=== PATIENT | female | born 1945 | race Caucasian/White ===

== ENCOUNTER 2017-12-14 10:42 | Emergency (ER) | payer MEDICARE, MEDICAID ==
[~2017-12-14] VITALS: Ht 154.9 cm; Wt 52.0 kg
[~2017-12-14 10:42] MED LIST: AMA100C PO; CARB1TAB23 PO; CEPH500C5 PO; CHOL10002 PO; CLON-528 PO; CYAN-19 PO; DOCU250C4 PO; ESCI10TA PO; FLO0.1T PO; HUM7525 SQ; HYDR-569 PO; LANTUS SQ; LORA-660 PO; MELO7.5T12 PO; MULT-1179 PO; POLY119P2 PO; ROPI2TAB4 PO; ZINC57OI3; ZOLP5TAB2 PO
[2017-12-14] MEDS ORDERED: normal saline 1000ML IV soln IVB ONE (13:45)
[2017-12-14 14:12] LABS: BASOPHILS % (AUTO) 0.1 % (0-1); EOSINOPHILS % (AUTO) 0 % (0-6); HEMATOCRIT 37.5 % (35.0-45.0); HEMOGLOBIN 12.7 g/dl (12.0-16.0); LYMPHOCYTES # (AUTO) 1.3 X10'3 (1.1-4.8); LYMPHOCYTES % (AUTO) 8.5 % (21-51); MEAN CORPUSCULAR HEMOGLOBIN 31.5 PG (27.0-31.0); MEAN CORPUSCULAR HGB CONC 33.9 % (33.0-36.5); MEAN CORPUSCULAR VOLUME 92.9 FL (78-98); MEAN PLATELET VOLUME 8.4 FL (7.4-10.4); MONOCYTES # (AUTO) 0.9 X10'3 (0-0.9); NEUTROPHILS # (AUTO) 13.5 X10'3 (1.8-7.7); NEUTROPHILS % (AUTO) 85.4 % (42-75); PLATELET COUNT 167 X10'3 (140-440); RED BLOOD COUNT 4.04 X10'6 (4.20-5.60); RED CELL DISTRIBUTION WIDTH 13.4 % (11.5-14.5); WHITE BLOOD COUNT 15.8 X10'3 (4.5-11.0)
[2017-12-14 14:21] LABS: INR 1.1 INR; PARTIAL THROMBOPLASTIN TIME 28 SECONDS (22-32); PROTHROMBIN TIME 11.2 SECONDS (9.0-12.0)
[2017-12-14 14:25] LABS: ANION GAP 7 (8-16); BILIRUBIN,TOTAL 0.7 MG/DL (0.1-1.0); BLOOD UREA NITROGEN 51 MG/DL (7-18); BUN/CREATININE RATIO 47.2 (6.6-38.0); CALCIUM 8.7 MG/DL (8.5-10.1); CHLORIDE 102 MMOL/L (99-107); CREATININE 1.08 MG/DL (0.40-0.90); GLUCOSE 297 MG/DL (70-104); POTASSIUM 3.9 MMOL/L (3.5-5.1); SODIUM 141 MMOL/L (135-145); TOTAL CARBON DIOXIDE 32.4 MMOL/L (24-32); eGFR 50 ML/MIN
[2017-12-14 14:26] LABS: ALANINE AMINOTRANSFERASE 10 U/L (12-78); ALBUMIN 3.2 G/DL (3.4-5.0); ALBUMIN/GLOBULIN RATIO 0.7 (1.1-1.5); ALKALINE PHOSPHATASE 113 IU/L (46-116); ASPARTATE AMINO TRANSFERASE 15 U/L (10-37); TOTAL PROTEIN 7.9 G/DL (6.4-8.2)
[2017-12-14 15:37] LABS: CLARITY,URINE CLOUDY (Clear); GLUCOSE, URINE >=1000 mg/dl (Neg); KETONES,URINE NEGATIVE (Neg); LEUKOCYTE ESTERASE ,URINE LARGE (Neg); NITRITES, URINE NEGATIVE (Neg); OCCULT BLOOD,URINE SMALL (Neg); PROTEIN,URINE TRACE mg/dl (Neg); UROBILINOGEN,URINE 0.2 E.U/dL (0.2-1.0)
[2017-12-14 15:44] LABS: COLOR,URINE COLORLESS (Yellow); UA COLLECTION TYPE CLN CATCH MIDSTREAM
[2017-12-14 15:50] LABS: HYALINE CASTS 0-3 /LPF (NEGATIVE); SQUAMOUS EPITHELIAL CELL,UR FEW /LPF (FEW)
[2017-12-14 15:52] LABS: BACTERIA,URINE 2+ /HPF (Neg); RBC,URINE NONE SEEN /HPF (0-2); WBC CLUMPS,URINE MANY /HPF (NEGATIVE); WBC,URINE TNTC /HPF (0-4)
[2017-12-14] MEDS ORDERED: CefTRIAXone inj 1,000 MG in normal saline 50ml IV soln 50 ML IV ONE (16:00)
[2017-12-14] MEDS ORDERED: CefTRIAXone/D5W-Rocephin 1gm 50 ML IV ONE (16:01)
[2017-12-14] MEDS ORDERED: ringers solution, lacted 1,000 ML IV ONE ×2 (16:40)
[2017-12-14 20:08] LABS: ALBUMIN 2.6 G/DL (3.4-5.0); ANION GAP 9 (8-16); BLOOD UREA NITROGEN 30 MG/DL (7-18); BUN/CREATININE RATIO 44.8 (6.6-38.0); CALCIUM 7.9 MG/DL (8.5-10.1); CHLORIDE 105 MMOL/L (99-107); CREATININE 0.67 MG/DL (0.40-0.90); GLUCOSE 148 MG/DL (70-104); POTASSIUM 3.4 MMOL/L (3.5-5.1); SODIUM 143 MMOL/L (135-145); TOTAL CARBON DIOXIDE 29.4 MMOL/L (24-32); eGFR 86 ML/MIN
[2017-12-14] MEDS ORDERED: CIPR-230 PO (21:33)
[2017-12-14 22:00] VITALS: BP 161/74
== END 2017-12-14 22:02 | disposition home or self-care (01) ==
LOC: ER 10:43
DX: E11.65 Type 2 diabetes mellitus with hyperglycemia (principal); N39.0 Urinary tract infection, site not specified; E86.0 Dehydration; Z98.890 Other specified postprocedural states; Z88.2 Allergy status to sulfonamides; Z88.8 Allergy status to other drugs, medicaments and biological substances; Z79.4 Long term (current) use of insulin; Z79.899 Other long term (current) drug therapy
CPT/HCPCS: 36415; 71045; 80048; 80053; 81001; 82948; 83605; 83735; 84145; 85025; 85610; 85730; 87040; 87077; 87088; 87186; 93005; 96361; 96365; 99285; J0696; J7030; J7120; J7040

== ENCOUNTER 2018-08-26 13:09 | Emergency (ER) | payer MEDICARE, MEDICAID ==
[~2018-08-26] VITALS: Ht 154.9 cm; Wt 53.2 kg
[~2018-08-26 13:09] MED LIST changes: +HYDR-4383 PO; -HYDR-569 PO
[2018-08-26 13:48] VITALS: BP 93/68
[2018-08-26] MEDS ORDERED: CefTRIAXone 2gm/D5W 50ml 50 ML IV ONE (15:10)
[2018-08-26] MEDS ORDERED: normal saline 1000ML IV soln IV ONE (15:10)
[2018-08-26 15:23] LABS: BASOPHILS % (AUTO) 0.3 % (0-1); EOSINOPHILS # (AUTO) 0.1 X10'3 (0-0.9); EOSINOPHILS % (AUTO) 1.6 % (0-6); HEMATOCRIT 37.7 % (35.0-45.0); HEMOGLOBIN 12.4 g/dl (12.0-16.0); LYMPHOCYTES # (AUTO) 1.6 X10'3 (1.1-4.8); LYMPHOCYTES % (AUTO) 18.8 % (21-51); MEAN CORPUSCULAR HEMOGLOBIN 30.4 PG (27.0-31.0); MEAN CORPUSCULAR HGB CONC 32.8 % (33.0-36.5); MEAN CORPUSCULAR VOLUME 92.7 FL (78-98); MEAN PLATELET VOLUME 8.9 FL (7.4-10.4); MONOCYTES # (AUTO) 0.6 X10'3 (0-0.9); MONOCYTES % (AUTO) 7.4 % (2-12); NEUTROPHILS % (AUTO) 71.9 % (42-75); PLATELET COUNT 163 X10'3 (140-440); RED BLOOD COUNT 4.07 X10'6 (4.20-5.60); RED CELL DISTRIBUTION WIDTH 14.3 % (11.5-14.5); WHITE BLOOD COUNT 8.3 X10'3 (4.5-11.0)
[2018-08-26 15:40] LABS: ALANINE AMINOTRANSFERASE 11 U/L (12-78); ALBUMIN 3.5 G/DL (3.4-5.0); ALBUMIN/GLOBULIN RATIO 0.9 (1.1-1.5); ALKALINE PHOSPHATASE 110 IU/L (46-116); ANION GAP 8 (8-16); ASPARTATE AMINO TRANSFERASE 27 U/L (10-37); BILIRUBIN,TOTAL 0.5 MG/DL (0.1-1.0); BLOOD UREA NITROGEN 32 MG/DL (7-18); BUN/CREATININE RATIO 40.5 (6.6-38.0); CALCIUM 9.2 MG/DL (8.5-10.1); CHLORIDE 99 MMOL/L (99-107); CREATININE 0.79 MG/DL (0.40-0.90); GLUCOSE 98 MG/DL (70-104); POTASSIUM 4.1 MMOL/L (3.5-5.1); SODIUM 139 MMOL/L (135-145); TOTAL CARBON DIOXIDE 32.4 MMOL/L (24-32); TOTAL PROTEIN 7.6 G/DL (6.4-8.2); eGFR 71 ML/MIN
[2018-08-26] MEDS ORDERED: CEPH-572 PO (16:11)
[2018-08-26] MEDS ORDERED: MYCOL30CR TP (16:11)
== END 2018-08-26 16:45 | disposition home or self-care (01) ==
LOC: ER 13:09
DX: N39.0 Urinary tract infection, site not specified (principal); R41.82 Altered mental status, unspecified; R21 Rash and other nonspecific skin eruption; E11.9 Type 2 diabetes mellitus without complications; G89.29 Other chronic pain; Z98.890 Other specified postprocedural states; Z88.2 Allergy status to sulfonamides; Z88.8 Allergy status to other drugs, medicaments and biological substances; Z79.899 Other long term (current) drug therapy; Z79.4 Long term (current) use of insulin
CPT/HCPCS: 36415; 80053; 82948; 85025; 96365; 99283; J0696; J7030

== ENCOUNTER 2018-10-24 19:21 | Inpatient (IN) | payer MEDICARE, MEDICAID | END 2018-10-27 17:15 | disposition home or self-care (01) | LOC: ED HOLD 10-25 01:40 → ER 19:21 → ICU 2S 10-25 05:30 → PCU 3S 10-25 12:30 | DX: N39.0 Urinary tract infection, site not specified (principal); G21.0 Malignant neuroleptic syndrome; E11.51 Type 2 diabetes mellitus with diabetic peripheral angiopathy without gangrene; F03.90 Unspecified dementia, unspecified severity, without behavioral disturbance, psychotic disturbance, mood disturbance, and anxiety ==

== ENCOUNTER 2019-06-21 11:49 | Inpatient (IN) | payer MEDICARE, MEDICAID ==
[~2019-06-21] VITALS: Ht 154.9 cm; Wt 44.5 kg
[~2019-06-21 11:49] MED LIST changes: +ATOR20TA PO; -CARB1TAB23 PO; +CARB1TAB42 PO; -CEPH500C5 PO; -CYAN-19 PO; +CYAN-51 PO; -HYDR-4383 PO; +LEVO500T89 PO; +METF500T20 PO; -MULT-1179 PO; +PIOG45TA65 PO; -ROPI2TAB4 PO; +UBID1CAP54 PO; -ZINC57OI3; +ZINC57OI3 TOP; -ZOLP5TAB2 PO
--- NOTE | 2019-06-21 12:33 | NUR ---
Note esme in EDM - 06/21/19 at 1234 by SONJA Pt had small smear of orangish brown bowel movement. Pt reports significant pain when being wiped with moist towellette. Pt reports she is not ready to return to the [facility] so the IV site can be started in preparation for the CT scan of the abd. Pt's daughter is at the bedside.
[2019-06-21 13:28] LABS: CLARITY,URINE CLOUDY (Clear); COLOR,URINE YELLOW (Yellow); GLUCOSE, URINE NEGATIVE (Neg); KETONES,URINE TRACE mg/dl (Neg); LEUKOCYTE ESTERASE ,URINE TRACE (Neg); NITRITES, URINE NEGATIVE (Neg); OCCULT BLOOD,URINE SMALL (Neg); PH,URINE 5.5 (4.8-8.0); PROTEIN,URINE 100 mg/dl (Neg); UROBILINOGEN,URINE 0.2 E.U/dL (0.2-1.0)
[2019-06-21 13:32] LABS: UA COLLECTION TYPE STRAIGHT CATH
[2019-06-21 13:50] LABS: MUCUS STRANDS FEW /LPF (Neg); SQUAMOUS EPITHELIAL CELL,UR FEW /LPF (FEW)
[2019-06-21] MEDS ORDERED: normal saline 1000ML IV soln IVB ONE (13:50)
[2019-06-21 13:51] LABS: BACTERIA,URINE 3+ /HPF (Neg)
--- NOTE | 2019-06-21 14:16 | NUR ---
PT TO CT
[2019-06-21 14:18] LABS: BASOPHILS % (AUTO) 0.4 % (0-1); EOSINOPHILS % (AUTO) 0.1 % (0-6); HEMATOCRIT 38.7 % (35.0-45.0); LYMPHOCYTES # (AUTO) 1.8 X10'3 (1.1-4.8); LYMPHOCYTES % (AUTO) 14.8 % (21-51); MEAN CORPUSCULAR HEMOGLOBIN 31.4 PG (27.0-31.0); MEAN CORPUSCULAR HGB CONC 33.5 g/dL (33.0-36.5); MEAN CORPUSCULAR VOLUME 93.7 FL (78-98); MEAN PLATELET VOLUME 9.1 FL (7.4-10.4); MONOCYTES # (AUTO) 0.5 X10'3 (0-0.9); MONOCYTES % (AUTO) 4.4 % (2-12); NEUTROPHILS # (AUTO) 9.7 X10'3 (1.8-7.7); NEUTROPHILS % (AUTO) 80.3 % (42-75); PLATELET COUNT 166 X10'3 (140-440); RED BLOOD COUNT 4.13 X10'6 (4.20-5.60); RED CELL DISTRIBUTION WIDTH 13.9 % (11.5-14.5); WHITE BLOOD COUNT 12.1 X10'3 (4.5-11.0)
[2019-06-21 14:27] LABS: PARTIAL THROMBOPLASTIN TIME 29 SECONDS (22-32)
[2019-06-21 14:29] LABS: ALANINE AMINOTRANSFERASE 29 U/L (12-78); ALBUMIN/GLOBULIN RATIO 0.7 (1.1-1.5); ALKALINE PHOSPHATASE 108 IU/L (46-116); ANION GAP 9 (8-16); ASPARTATE AMINO TRANSFERASE 69 U/L (10-37); BILIRUBIN,TOTAL 0.6 MG/DL (0.1-1.0); BLOOD UREA NITROGEN 37 MG/DL (7-18); BUN/CREATININE RATIO 28.7 (6.6-38.0); CALCIUM 8.5 MG/DL (8.5-10.1); CHLORIDE 104 MMOL/L (99-107); CREATININE 1.29 MG/DL (0.40-0.90); GLUCOSE 81 MG/DL (70-104); MAGNESIUM 1.2 MG/DL (1.5-2.4); POTASSIUM 3.1 MMOL/L (3.5-5.1); SODIUM 144 MMOL/L (135-145); TOTAL CARBON DIOXIDE 31.5 MMOL/L (24-32); TOTAL PROTEIN 7.1 G/DL (6.4-8.2); eGFR 40 ML/MIN
[2019-06-21] MEDS ORDERED: potassium 10mEq/100ml NS w/LIDOcaine (10mg/bag) IV ONE (14:55)
[2019-06-21] MEDS ORDERED: CefTRIAXone/D5W-Rocephin 1gm 50 ML IV ONE (14:55)
[2019-06-21] MEDS ORDERED: potassium Cl 10 mEq/100mL bag IV ONE (15:05)
[2019-06-21] MEDS ORDERED: OMEP-50 PO (15:34)
[2019-06-21] MEDS ORDERED: METF-438 PO (15:34)
[2019-06-21] MEDS ORDERED: AMA100C PO (15:34)
[2019-06-21] MEDS ORDERED: diphenhydrAMINE 25mg capsule PO PRN (16:20)
[2019-06-21] MEDS ORDERED: magnesium 4gm in 100ml NS 100 ML IV PRN (16:20)
[2019-06-21] MEDS ORDERED: magnesium 2GM in 50ml NS 50 ML IV PRN (16:20)
[2019-06-21] MEDS ORDERED: HYDROcodone/acetaminophen 10/325mg tab PO PRN (16:20)
[2019-06-21] MEDS ORDERED: bisacodyl 10mg suppository rectal RC PRN (16:20)
[2019-06-21] MEDS ORDERED: magnesium hydroxide 30ml (MOM) UD suspension PO PRN (16:20)
[2019-06-21] MEDS ORDERED: HYDROcodone/acetaminophen 5mg/325mg tablet PO PRN (16:20)
[2019-06-21] MEDS ORDERED: potassium CL 10mEq/100ml bag 100 ML IV PRN (16:20)
[2019-06-21] MEDS ORDERED: potassium Cl 20 mEq SR tablet PO PRN ×2 (16:20)
[2019-06-21] MEDS ORDERED: magnesium Cl slow-release 64mg tablet PO PRN (16:20)
[2019-06-21] MEDS ORDERED: mag hydrox/Alum hydrox/simeth 30ml oral suspension PO PRN (16:20)
[2019-06-21] MEDS ORDERED: diphenhydrAMINE 50 mg/ml inj IV PRN (16:20)
[2019-06-21] MEDS ORDERED: ondansetron/PF 4mg/2ml inj IV PRN (16:20)
[2019-06-21] MEDS ORDERED: acetaminophen 325mg tablet PO PRN ×2 (16:20)
[2019-06-21] MEDS ORDERED: metoclopramide 5 mg/ml inj IV PRN (16:20)
[2019-06-21] MEDS ORDERED: dextrose ORAL solution 15 GM/59 ML bottle PO PRN ×2 (16:40)
[2019-06-21] MEDS ORDERED: dextrose 50%-water 50ml dispensing syringe IV PRN (16:40)
[2019-06-21] MEDS ORDERED: glucagon, human recombinant 1mg kit SUBCUT PRN (16:40)
[2019-06-21] MEDS ORDERED: insulin Lispro (HumaLOG) vial - multi-dose SQ SCH (16:40)
[2019-06-21] MEDS ORDERED: MESSAGE TO PHARMACY PO ONE (16:40)
[2019-06-21] MEDS ORDERED: ACET-75 PO (16:44)
[2019-06-21] MEDS ORDERED: CETI10CA PO (16:44)
[2019-06-21] MEDS ORDERED: NUTR113P PO (16:47)
[2019-06-21 17:00] LABS: HEMOGLOBIN A1C 6.4 % (4.5-6.2)
[2019-06-21] MEDS ORDERED: INSULIN ASPART 2 UNIT SQ SCH (18:00)
--- NOTE | 2019-06-21 18:13 | NUR ---
TONI, CAREGIVER AT BEDSIDE WITH PT. CAREGIVER WILL STAY WITH PT UNTIL SHE GOES TO A ROOM.
[2019-06-21] MEDS: normal saline 1000ml 1,000 ML IV SCH (18:25)
[2019-06-21] MEDS: dextrose 50%-water 50ml dispensing syringe IV PRN (18:42)
--- NOTE | 2019-06-21 18:45 | NUR ---
PT HAD A BLOOD SUGAR OF 47. ADMINISTERED 50ML OF DEXTROSE ORDERED. WILL RECHECK BLOOD SUGAR IN 15 MINUTES.
--- NOTE | 2019-06-21 18:55 | NUR ---
BLOOD SUGAR RECHECK 214
--- NOTE | 2019-06-21 19:09 | NUR ---
CALLED TO MEDICAL FLOOR TO GIVE REPORT. RN NOT AVAILABLE AT THIS TIME
--- NOTE | 2019-06-21 19:50 | NUR ---
Received report from Mary Alice TABARES in the ER. Pt arrived on the unit via gurney with caregiver at bedside. Transferred pt using slide board. Pt has no signs of distress, will continue to monitor.
[2019-06-21 20:00] VITALS: BP 152/38
[2019-06-21] MEDS ORDERED: amantadine 100mg/10ml UD oral solution PO SCH (20:00)
[2019-06-21] MEDS ORDERED: temazepam 15mg capsule PO PRN (21:00)
[2019-06-21] MEDS: insulin glargine (Lantus) pen - multi-dose SQ SCH (21:00)
[2019-06-21] MEDS: carbidopa/levodopa 50/200mg CR tablet PO SCH (22:54)
[2019-06-21] MEDS: acetaminophen 325mg tablet PO SCH (22:54)
[2019-06-21] MEDS: heparin, porcine 5000 units/ml vial SQ SCH (22:55)
[2019-06-21 23:47] VITALS: BP 151/85
[2019-06-22] MEDS: normal saline 1000ml 1,000 ML IV SCH (03:49)
[2019-06-22 04:50] LABS: BASOPHILS % (AUTO) 0.4 % (0-1); EOSINOPHILS % (AUTO) 0.5 % (0-6); HEMATOCRIT 36.1 % (35.0-45.0); HEMOGLOBIN 12.1 g/dl (12.0-16.0); LYMPHOCYTES # (AUTO) 1.4 X10'3 (1.1-4.8); LYMPHOCYTES % (AUTO) 17.7 % (21-51); MEAN CORPUSCULAR HEMOGLOBIN 31.8 PG (27.0-31.0); MEAN CORPUSCULAR HGB CONC 33.6 g/dL (33.0-36.5); MEAN CORPUSCULAR VOLUME 94.6 FL (78-98); MEAN PLATELET VOLUME 8.9 FL (7.4-10.4); MONOCYTES # (AUTO) 0.5 X10'3 (0-0.9); MONOCYTES % (AUTO) 6.3 % (2-12); NEUTROPHILS # (AUTO) 5.9 X10'3 (1.8-7.7); NEUTROPHILS % (AUTO) 75.1 % (42-75); PLATELET COUNT 144 X10'3 (140-440); RED BLOOD COUNT 3.81 X10'6 (4.20-5.60); RED CELL DISTRIBUTION WIDTH 14.2 % (11.5-14.5); WHITE BLOOD COUNT 7.9 X10'3 (4.5-11.0)
[2019-06-22 05:06] LABS: ALANINE AMINOTRANSFERASE 27 U/L (12-78); ALBUMIN 2.8 G/DL (3.4-5.0); ALBUMIN/GLOBULIN RATIO 0.7 (1.1-1.5); ALKALINE PHOSPHATASE 92 IU/L (46-116); ANION GAP 5 (8-16); ASPARTATE AMINO TRANSFERASE 37 U/L (10-37); BILIRUBIN,TOTAL 0.4 MG/DL (0.1-1.0); BLOOD UREA NITROGEN 27 MG/DL (7-18); BUN/CREATININE RATIO 28.4 (6.6-38.0); CALCIUM 7.9 MG/DL (8.5-10.1); CHLORIDE 108 MMOL/L (99-107); CREATININE 0.95 MG/DL (0.40-0.90); GLUCOSE 70 MG/DL (70-104); MAGNESIUM 1.2 MG/DL (1.5-2.4); PHOSPHORUS 2.8 MG/DL (2.3-4.5); SODIUM 147 MMOL/L (135-145); TOTAL CARBON DIOXIDE 34.4 MMOL/L (24-32); TOTAL PROTEIN 6.6 G/DL (6.4-8.2); eGFR 57 ML/MIN
[2019-06-22 05:08] LABS: POTASSIUM 2.9 MMOL/L (3.5-5.1)
[2019-06-22] MEDS: potassium CL 10mEq/100ml bag 100 ML IV PRN (05:31)
--- NOTE | 2019-06-22 06:35 | NUR ---
Patient in room [facility]. I have received report from RAYSHAWN Arroyo and had the opportunity to ask questions and assume patient care.
--- NOTE | 2019-06-22 06:35 | NUR ---
Problems reprioritized. Patient report given, questions answered & plan of care reviewed with Sally RN .
[2019-06-22] MEDS: dextrose 50%-water 50ml dispensing syringe IV PRN (06:48)
[2019-06-22 07:33] VITALS: BP 147/45
[2019-06-22] MEDS: CefTRIAXone/D5W-Rocephin 1gm 50 ML IV SCH (07:33)
[2019-06-22] MEDS ORDERED: insulin glargine (Lantus) pen - multi-dose SQ SCH (08:00)
[2019-06-22] MEDS: K and/or MAG REPLACEMENT MC SCH (08:00)
[2019-06-22] MEDS: acetaminophen 325mg tablet PO SCH (08:00)
[2019-06-22] MEDS ORDERED: Potassium Cl inj 20 MEQ in normal saline 1000ml 990 ML IV SCH (09:20)
[2019-06-22] MEDS: fludrocortisone acetate 0.1mg tablet PO SCH (09:36)
[2019-06-22] MEDS: cetirizine 10mg tablet PO SCH (09:36)
[2019-06-22] MEDS: Potassium Cl 40 MEQ in NS 500 ML IV SCH ×2 (09:36→14:57)
[2019-06-22] MEDS: amantadine 100 MG capsule PO SCH (09:37)
[2019-06-22] MEDS: pantoprazole 40mg Tablet.DR PO SCH (09:37)
[2019-06-22] MEDS: ESCITALOPRAM OXALATE 5 MG TABLET PO SCH (09:40)
[2019-06-22] MEDS: heparin, porcine 5000 units/ml vial SQ SCH ×2 (09:41→21:01)
[2019-06-22] MEDS: carbidopa/levodopa 50/200mg CR tablet PO SCH ×3 (09:59→21:00)
--- NOTE | 2019-06-22 10:15 | NUR ---
Pt with low [place] of 12. Skin intact and no edema per physical assessment. Noted that patient's wt on the low end of appropriate however current documented wt is pt stated despite pt documented as A/O x 1 and nonverbal with hx dementia. Pt admit earlier this year with RD assessment 10/25/18 noted to have no visible fat or muscle wasting and appeared wt appropriate with documented wt hx range of 43-52kg all pt stated and documented ht hx range of 56-64 in between prior admits. No concerns for malnutrition at this time. Will continue to follow. Addendum: 06/22/19 at [address] Amended: Links added.
[2019-06-22 12:00] VITALS: BP 123/87
[2019-06-22 19:12] VITALS: BP 143/72
--- NOTE | 2019-06-22 19:15 | NUR ---
Patient in room [facility]. I have received report from Sally TABARES and had the opportunity to ask questions and assume patient care.
[2019-06-22] MEDS: insulin glargine (Lantus) pen - multi-dose SQ SCH (21:00)
[2019-06-22] MEDS: dextrose 5%-1/4 normal saline 1,000 ML IV SCH (21:01)
[2019-06-22] MEDS: lactobacillus rhamnosus 10,000 MMU CELLS/CAPSULE PO SCH (21:01)
[2019-06-23] VITALS: BP 140/70
[2019-06-23 04:41] LABS: ANION GAP 3 (8-16); BLOOD UREA NITROGEN 14 MG/DL (7-18); BUN/CREATININE RATIO 18.4 (6.6-38.0); CALCIUM 7.7 MG/DL (8.5-10.1); CHLORIDE 104 MMOL/L (99-107); CREATININE 0.76 MG/DL (0.40-0.90); GLUCOSE 209 MG/DL (70-104); POTASSIUM 3.1 MMOL/L (3.5-5.1); SODIUM 140 MMOL/L (135-145); TOTAL CARBON DIOXIDE 32.6 MMOL/L (24-32); eGFR 74 ML/MIN
[2019-06-23 04:42] LABS: ALANINE AMINOTRANSFERASE 23 U/L (12-78); ALKALINE PHOSPHATASE 88 IU/L (46-116); ASPARTATE AMINO TRANSFERASE 21 U/L (10-37); BILIRUBIN,TOTAL 0.4 MG/DL (0.1-1.0); PHOSPHORUS 1.9 MG/DL (2.3-4.5); TOTAL PROTEIN 6.7 G/DL (6.4-8.2)
[2019-06-23 04:43] LABS: BASOPHILS % (AUTO) 0.3 % (0-1); EOSINOPHILS # (AUTO) 0.1 X10'3 (0-0.9); EOSINOPHILS % (AUTO) 1.2 % (0-6); HEMATOCRIT 35.4 % (35.0-45.0); LYMPHOCYTES # (AUTO) 1.4 X10'3 (1.1-4.8); LYMPHOCYTES % (AUTO) 25.9 % (21-51); MEAN CORPUSCULAR HEMOGLOBIN 31.6 PG (27.0-31.0); MEAN CORPUSCULAR HGB CONC 33.9 g/dL (33.0-36.5); MEAN CORPUSCULAR VOLUME 93.2 FL (78-98); MEAN PLATELET VOLUME 9.1 FL (7.4-10.4); MONOCYTES # (AUTO) 0.3 X10'3 (0-0.9); NEUTROPHILS # (AUTO) 3.5 X10'3 (1.8-7.7); NEUTROPHILS % (AUTO) 66.6 % (42-75); PLATELET COUNT 148 X10'3 (140-440); WHITE BLOOD COUNT 5.2 X10'3 (4.5-11.0)
[2019-06-23 04:48] LABS: ALBUMIN 2.8 G/DL (3.4-5.0); ALBUMIN/GLOBULIN RATIO 0.7 (1.1-1.5); MAGNESIUM 1.8 MG/DL (1.5-2.4)
--- NOTE | 2019-06-23 06:12 | NUR ---
Problems reprioritized. Patient report given, questions answered & plan of care reviewed with Codie TABARES.
[2019-06-23] MEDS: dextrose 5%-1/4 normal saline 1,000 ML IV SCH (06:45)
[2019-06-23] MEDS: CefTRIAXone/D5W-Rocephin 1gm 50 ML IV SCH (07:02)
[2019-06-23] MEDS: pantoprazole 40mg Tablet.DR PO SCH (07:51)
[2019-06-23] MEDS: K and/or MAG REPLACEMENT MC SCH (07:51)
[2019-06-23] MEDS: fludrocortisone acetate 0.1mg tablet PO SCH (07:52)
[2019-06-23] MEDS: lactobacillus rhamnosus 10,000 MMU CELLS/CAPSULE PO SCH (07:52)
[2019-06-23] MEDS: ESCITALOPRAM OXALATE 5 MG TABLET PO SCH (07:54)
[2019-06-23] MEDS: cetirizine 10mg tablet PO SCH (07:54)
[2019-06-23 08:00] VITALS: BP 148/71
[2019-06-23] MEDS ORDERED: non-formulary drug (Polyethylene Glycol 3350 (Miralax) 17 GM) PO SCH (08:00)
[2019-06-23] MEDS: amantadine 100 MG capsule PO SCH (08:05)
[2019-06-23] MEDS: carbidopa/levodopa 50/200mg CR tablet PO SCH ×2 (08:06→13:28)
[2019-06-23] MEDS: heparin, porcine 5000 units/ml vial SQ SCH (08:08)
[2019-06-23] MEDS: potassium CL 10mEq/100ml bag 100 ML IV PRN ×4 (08:11→13:28)
[2019-06-23] MEDS ORDERED: polyethylene glycol 3350 17gm powd pack PO SCH (08:14)
[2019-06-23] MEDS ORDERED: OMEP-50 PO (10:52)
[2019-06-23] MEDS ORDERED: POTA20TA10 PO (10:53)
[2019-06-23 11:00] VITALS: BP 163/64
--- NOTE | 2019-06-23 12:36 | NUR ---
Patient in room [facility]. I have received report from Codie and had the opportunity to ask questions and assume patient care.
--- NOTE | 2019-06-23 14:20 | NUR ---
Did not start patient on diabetic protocol for lunch. Pt will be going home and when not on dextrose is at risk for blood sugars dropping if insulin is given.
--- NOTE | 2019-06-23 14:47 | NUR ---
Patient refused to look up when asked and turned her head away when I lowered my head in an attempt to assess pupils. Addendum: 06/23/19 at 1459 by Tomeka ALBERT Amended: Links added.
[2019-06-23] MEDS ORDERED: CIPR-230 PO (16:01)
--- NOTE | 2019-06-23 17:02 | NUR ---
Student documentation: I have reviewed all interventions, assessments performed and documented by Tomeka THOMAS .
--- NOTE | 2019-06-23 17:39 | NUR ---
Problems reprioritized. Patient report given, questions answered & plan of care reviewed with
--- NOTE | 2019-06-23 17:45 | NUR ---
PT DISCHARGED BACK TO CARE FACILITY WITH TONI, BRIQUETTE MAKER/CARPET JACK. IV X2 TAKEN OUT, NO TELE. PT WAS NOT COVERED FOR BLOOD SUGAR DUE TO ISSUES WITH HER DROPPING AND WHEN GIVEN DEXTROSE SHE GOES INTO 200'S FOR SHORT TIME. JULIO CÉSAR OTHER [employer] PAYROLL CONSULTANT AWARE THAT BLOOD SUGARS ARE HIGH FOR NOW AND SHE SAYS IT WAS OKAY TO NOT GIVE INSULIN FOR NOW SINCE SHE IS LEAVING AND SHE WILL CHECK HER BACK AT FACILITY AND CORRECT IT THEN. PT WAS BROUGHT CLOTHES AND DRESSED BY STUDENTS AND AIDE AND BROUGHT DOWN TO TONI OUTSIDE IN [place]AN. POTASSIUM CORRECTED PRIOR TO DISCHARGE AND RECHECKED. MEDS CALLED INTO [facility] HALFWAY CARE SIDE PER JULIO CÉSAR. DISCHARGE INSTRUCTIONS GIVEN TO AND SIGNED BY TONI. ALL BELONGINGS TAKEN FROM ROOM. PT APPEARS BACK AT BASELINE ACCORDING TO CONVERSATIONS WITH CARE GIVERS.
== END 2019-06-23 18:15 | disposition home or self-care (01) | DRG 682 ==
LOC: ER 11:49 → ED HOLD 16:29 → SUR 3N 19:55
PROVIDERS: ADMIT Family Medicine; ATTEND Internal Medicine
DX: N17.9 Acute kidney failure, unspecified (principal); G93.41 Metabolic encephalopathy; N39.0 Urinary tract infection, site not specified; Z68.1 Body mass index [BMI] 19.9 or less, adult; E87.0 Hyperosmolality and hypernatremia; G20 Parkinson's disease; F02.80 Dementia in other diseases classified elsewhere, unspecified severity, without behavioral disturbance, psychotic disturbance, mood disturbance, and anxiety; R62.7 Adult failure to thrive; R13.10 Dysphagia, unspecified; E83.42 Hypomagnesemia; E11.319 Type 2 diabetes mellitus with unspecified diabetic retinopathy without macular edema; E78.5 Hyperlipidemia, unspecified; E86.0 Dehydration; E87.6 Hypokalemia; G30.9 Alzheimer's disease, unspecified; J32.9 Chronic sinusitis, unspecified; K80.20 Calculus of gallbladder without cholecystitis without obstruction; N20.0 Calculus of kidney; N28.1 Cyst of kidney, acquired; E11.22 Type 2 diabetes mellitus with diabetic chronic kidney disease; Z66 Do not resuscitate; F32.9 Major depressive disorder, single episode, unspecified; G89.29 Other chronic pain; N18.9 Chronic kidney disease, unspecified; Z88.2 Allergy status to sulfonamides; Z88.8 Allergy status to other drugs, medicaments and biological substances; Z86.73 Personal history of transient ischemic attack (TIA), and cerebral infarction without residual deficits
CPT/HCPCS: 36415; 71045; 74176; 80053; 81001; 82948; 83036; 83605; 83735; 84100; 84132; 84145; 85025; 85610; 85730; 87077; 87081; 87088; 87186; 92508; 92616; 93005; 96365; 96368; 97110; 97161; 97530; 97535; 99285; G0378; J0696; J1644; J1815; J3475; J3480; J7030; J7040

== ENCOUNTER 2019-08-03 13:20 | Outpatient (CLI) | payer MEDICARE, MEDICAID ==
[~2019-08-03 13:20] MED LIST changes: +ACET-75 PO; -ATOR20TA PO; +CETI10CA PO; -CHOL10002 PO; -CYAN-51 PO; -DOCU250C4 PO; -HUM7525 SQ; -LEVO500T89 PO; -LORA-660 PO; -MELO7.5T12 PO; -METF500T20 PO; +OMEP-50 PO; -PIOG45TA65 PO; +POTA20TA10 PO; -UBID1CAP54 PO; -ZINC57OI3 TOP
== END 2019-08-03 23:59 | disposition home or self-care (01) ==
LOC: RAD 13:20
PROVIDERS: ATTEND Family Medicine
DX: G20 Parkinson's disease (principal); R13.12 Dysphagia, oropharyngeal phase; F03.90 Unspecified dementia, unspecified severity, without behavioral disturbance, psychotic disturbance, mood disturbance, and anxiety; R62.50 Unspecified lack of expected normal physiological development in childhood; E11.319 Type 2 diabetes mellitus with unspecified diabetic retinopathy without macular edema; E11.40 Type 2 diabetes mellitus with diabetic neuropathy, unspecified; K59.00 Constipation, unspecified; J32.9 Chronic sinusitis, unspecified; M50.30 Other cervical disc degeneration, unspecified cervical region
CPT/HCPCS: 74230

== ENCOUNTER 2020-01-14 21:53 | Emergency (ER) | payer MEDICARE, MEDICAID ==
[~2020-01-14] VITALS: Ht 165.1 cm; Wt 63.0 kg
[2020-01-14] MEDS ORDERED: dextrose 5%-normal saline 1,000 ML IV ONE (22:30)
[2020-01-14] MEDS ORDERED: ondansetron/PF 4mg/2ml inj IV ONE (22:40)
[2020-01-14 22:49] LABS: BASOPHILS % (AUTO) 0.3 % (0-1); EOSINOPHILS # (AUTO) 0.1 X10'3 (0-0.9); EOSINOPHILS % (AUTO) 0.6 % (0-6); HEMATOCRIT 41.1 % (35.0-45.0); HEMOGLOBIN 13.5 g/dl (12.0-16.0); LYMPHOCYTES # (AUTO) 1.8 X10'3 (1.1-4.8); LYMPHOCYTES % (AUTO) 21.1 % (21-51); MEAN CORPUSCULAR HEMOGLOBIN 31.6 PG (27.0-31.0); MEAN CORPUSCULAR HGB CONC 32.8 g/dL (33.0-36.5); MEAN CORPUSCULAR VOLUME 96.4 FL (78-98); MEAN PLATELET VOLUME 8.9 FL (7.4-10.4); MONOCYTES # (AUTO) 0.3 X10'3 (0-0.9); MONOCYTES % (AUTO) 3.1 % (2-12); NEUTROPHILS # (AUTO) 6.6 X10'3 (1.8-7.7); NEUTROPHILS % (AUTO) 74.9 % (42-75); PLATELET COUNT 185 X10'3 (140-440); RED BLOOD COUNT 4.26 X10'6 (4.20-5.60); RED CELL DISTRIBUTION WIDTH 13.6 % (11.5-14.5); WHITE BLOOD COUNT 8.7 X10'3 (4.5-11.0)
[2020-01-14 22:57] LABS: PARTIAL THROMBOPLASTIN TIME 28 SECONDS (22-32)
[2020-01-14 22:59] LABS: ALANINE AMINOTRANSFERASE 10 U/L (12-78); ALBUMIN 3.6 G/DL (3.4-5.0); ALBUMIN/GLOBULIN RATIO 0.9 (1.1-1.5); ALKALINE PHOSPHATASE 78 IU/L (46-116); ANION GAP 7 (8-16); ASPARTATE AMINO TRANSFERASE 16 U/L (10-37); BILIRUBIN,TOTAL 0.4 MG/DL (0.1-1.0); BLOOD UREA NITROGEN 35 MG/DL (7-18); BUN/CREATININE RATIO 38.5 (6.6-38.0); CALCIUM 9.6 MG/DL (8.5-10.1); CHLORIDE 105 MMOL/L (99-107); CREATININE 0.91 MG/DL (0.40-0.90); GLUCOSE 117 MG/DL (70-104); SODIUM 145 MMOL/L (135-145); TOTAL CARBON DIOXIDE 33.1 MMOL/L (24-32); TOTAL PROTEIN 7.4 G/DL (6.4-8.2); eGFR 60 ML/MIN
[2020-01-14 23:03] LABS: MAGNESIUM 1.6 MG/DL (1.5-2.4); TROPONIN I < 0.04 NG/ML (0.0-0.05)
[2020-01-14] MEDS ORDERED: normal saline 1000ML IV soln IVB ONE ×2 (23:40)
[2020-01-14 23:42] LABS: CLARITY,URINE CLEAR (Clear); COLOR,URINE YELLOW (Yellow); GLUCOSE, URINE NEGATIVE (Neg); KETONES,URINE TRACE mg/dl (Neg); LEUKOCYTE ESTERASE ,URINE NEGATIVE (Neg); NITRITES, URINE NEGATIVE (Neg); OCCULT BLOOD,URINE NEGATIVE (Neg); PROTEIN,URINE 30 mg/dl (Neg); UROBILINOGEN,URINE 0.2 E.U/dL (0.2-1.0)
[2020-01-14 23:43] LABS: UA COLLECTION TYPE FOLEY CATH
[2020-01-14] MEDS ORDERED: METF500T PO (23:44)
--- NOTE | 2020-01-14 23:58 | NUR ---
Can call Burak (caregiver) at [phone] or [facility] at [phone]
[2020-01-15 00:13] LABS: HYALINE CASTS 0-3 /LPF (NEGATIVE); MUCUS STRANDS NONE SEEN /LPF (Neg); SQUAMOUS EPITHELIAL CELL,UR FEW /LPF (FEW)
[2020-01-15 00:14] LABS: RBC,URINE 0-2 /HPF (0-2); WBC,URINE 0-4 /HPF (0-4)
[2020-01-15 00:15] LABS: BACTERIA,URINE NONE SEEN /HPF (Neg)
[2020-01-15] MEDS ORDERED: ONDA8TAB6 PO (02:11)
[2020-01-15] MEDS ORDERED: LOPE2CAP PO (02:11)
--- NOTE | 2020-01-15 02:14 | NUR ---
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
[2020-01-15 02:34] VITALS: BP 108/80
--- NOTE | 2020-01-17 07:15 | NUR ---
LAB CALLED WITH CULTURE RESULTS; BLOOD CULTURE: POSITIVE GRAMC COCCI IN CLUSTERS, AREOBIC BOTTLE AFTER 53 HRS.
== END 2020-01-15 02:36 | disposition home or self-care (01) ==
LOC: ER 21:54
DX: E11.649 Type 2 diabetes mellitus with hypoglycemia without coma (principal); K52.9 Noninfective gastroenteritis and colitis, unspecified; G89.29 Other chronic pain; F03.90 Unspecified dementia, unspecified severity, without behavioral disturbance, psychotic disturbance, mood disturbance, and anxiety; Z98.890 Other specified postprocedural states; Z88.2 Allergy status to sulfonamides; Z88.8 Allergy status to other drugs, medicaments and biological substances; Z79.4 Long term (current) use of insulin; Z79.899 Other long term (current) drug therapy
CPT/HCPCS: 36415; 71045; 80053; 81001; 82948; 83605; 83735; 84145; 84484; 85025; 85610; 85730; 87040; 93005; 96361; 96374; 99285; J2405; J7030; J7042; 87077; 87186

== ENCOUNTER 2020-01-21 22:01 | Inpatient (IN) | payer MEDICARE, MEDICAID ==
[~2020-01-21] VITALS: Ht 162.6 cm; Wt 40.6 kg
[~2020-01-21 22:01] MED LIST changes: -FLO0.1T PO; +LOPE2CAP PO; +METF500T PO; +ONDA8TAB6 PO; -POTA20TA10 PO
--- NOTE | 2020-01-21 22:29 | NUR ---
Sabrina medical conservator [phone]
[2020-01-21 22:35] LABS: BASOPHILS % (AUTO) 0.4 % (0-1); EOSINOPHILS # (AUTO) 0.1 X10'3 (0-0.9); EOSINOPHILS % (AUTO) 0.8 % (0-6); HEMATOCRIT 39.7 % (35.0-45.0); LYMPHOCYTES # (AUTO) 1.3 X10'3 (1.1-4.8); LYMPHOCYTES % (AUTO) 21.5 % (21-51); MEAN CORPUSCULAR HEMOGLOBIN 31.5 PG (27.0-31.0); MEAN CORPUSCULAR HGB CONC 32.8 g/dL (33.0-36.5); MEAN PLATELET VOLUME 9.2 FL (7.4-10.4); MONOCYTES # (AUTO) 0.4 X10'3 (0-0.9); MONOCYTES % (AUTO) 6.1 % (2-12); NEUTROPHILS # (AUTO) 4.4 X10'3 (1.8-7.7); NEUTROPHILS % (AUTO) 71.2 % (42-75); PLATELET COUNT 173 X10'3 (140-440); RED BLOOD COUNT 4.13 X10'6 (4.20-5.60); RED CELL DISTRIBUTION WIDTH 13.4 % (11.5-14.5); WHITE BLOOD COUNT 6.2 X10'3 (4.5-11.0)
[2020-01-21 23:16] LABS: CLARITY,URINE CLEAR (Clear); COLOR,URINE YELLOW (Yellow); GLUCOSE, URINE >=1000 mg/dl (Neg); KETONES,URINE NEGATIVE (Neg); LEUKOCYTE ESTERASE ,URINE NEGATIVE (Neg); NITRITES, URINE NEGATIVE (Neg); OCCULT BLOOD,URINE NEGATIVE (Neg); PROTEIN,URINE TRACE mg/dl (Neg); UROBILINOGEN,URINE 0.2 E.U/dL (0.2-1.0)
[2020-01-21 23:28] LABS: UA COLLECTION TYPE STRAIGHT CATH
[2020-01-21 23:29] LABS: BACTERIA,URINE FEW /HPF (Neg); RBC,URINE 0-2 /HPF (0-2); SQUAMOUS EPITHELIAL CELL,UR FEW /LPF (FEW); WBC,URINE 0-4 /HPF (0-4)
[2020-01-21 23:50] LABS: ALANINE AMINOTRANSFERASE 9 U/L (12-78); ALBUMIN 3.4 G/DL (3.4-5.0); ALKALINE PHOSPHATASE 71 IU/L (46-116); ANION GAP 4 (8-16); ASPARTATE AMINO TRANSFERASE 19 U/L (10-37); BILIRUBIN,TOTAL 0.3 MG/DL (0.1-1.0); BLOOD UREA NITROGEN 25 MG/DL (7-18); BUN/CREATININE RATIO 31.3 (6.6-38.0); CALCIUM 8.3 MG/DL (8.5-10.1); CHLORIDE 101 MMOL/L (99-107); GLUCOSE 232 MG/DL (70-104); MAGNESIUM 1.3 MG/DL (1.5-2.4); POTASSIUM 4.4 MMOL/L (3.5-5.1); SODIUM 137 MMOL/L (135-145); TOTAL CARBON DIOXIDE 32.5 MMOL/L (24-32); TOTAL PROTEIN 6.9 G/DL (6.4-8.2); eGFR 70 ML/MIN
[2020-01-21] MEDS ORDERED: normal saline 1000ML IV soln IV ONE (23:55)
--- NOTE | 2020-01-22 01:58 | NUR ---
PT FINISHING HER 2ND LITER NS BOLUS. ACCUCHECK 96. DR. CHACON AWARE. CARLOSHN 2ND LITER FINISHED HE REUQESTS HER LACTIC TO BE REDRAWN. HE ANTICIPATES PT TO BE DISCHARGED HOME .
--- NOTE | 2020-01-22 02:39 | NUR ---
repeat lactic drawn. md notified.
--- NOTE | 2020-01-22 02:55 | NUR ---
darrion 65, 1 hr ago [address]. Dr. Cottrell updated and reports she will be admitted.
[2020-01-22] MEDS ORDERED: OMEP-50 PO (03:19)
[2020-01-22] MEDS ORDERED: [UNRECOGNIZED DRUG - CODE] TOP (03:24)
[2020-01-22] MEDS ORDERED: CARB1TAB42 PO (03:24)
--- NOTE | 2020-01-22 03:27 | NUR ---
verbal received for d5 [address] kwon at bedside.
[2020-01-22] MEDS ORDERED: dextrose 50%-water 50ml dispensing syringe IV ONE (03:30)
--- NOTE | 2020-01-22 03:35 | NUR ---
PT GIVEN A AMP D50 FOR BLOOD SUGAR OF 69.
--- NOTE | 2020-01-22 04:03 | NUR ---
PT TURNED AND CLEANED, HAD SATURATED DIAPER. SKIN INTACT TO [place] AREA AND BUTTUCK. CALAZIME LOTION APPLIED. ACCUEHCK NOW 173. WILL RECHECK IN 1 HR. VSS.
[2020-01-22] MEDS ORDERED: glucagon, human recombinant 1mg kit SUBCUT PRN (04:10)
[2020-01-22] MEDS ORDERED: mag hydrox/Alum hydrox/simeth 30ml oral suspension PO PRN (04:10)
[2020-01-22] MEDS ORDERED: ondansetron/PF 4mg/2ml inj IV PRN (04:10)
[2020-01-22] MEDS ORDERED: acetaminophen 325mg tablet PO PRN ×2 (04:10→08:00)
[2020-01-22] MEDS ORDERED: dextrose 5%-water 1,000 ML IV SCH (04:10)
[2020-01-22] MEDS ORDERED: dextrose ORAL solution 15 GM/59 ML bottle PO PRN ×2 (04:10)
[2020-01-22] MEDS ORDERED: MESSAGE TO PHARMACY PO ONE (04:10)
[2020-01-22] MEDS ORDERED: insulin Lispro (HumaLOG) vial - multi-dose SQ SCH (04:10)
[2020-01-22] MEDS ORDERED: magnesium hydroxide 30ml (MOM) UD suspension PO PRN (04:10)
[2020-01-22] MEDS ORDERED: dextrose 50%-water 50ml dispensing syringe IV PRN (04:10)
[2020-01-22] MEDS ORDERED: LACT-48 PO (04:21)
[2020-01-22] MEDS ORDERED: OXYGEN NASALCANN (04:22)
[2020-01-22] MEDS ORDERED: INSU100C4 SQ (04:37)
[2020-01-22] MEDS ORDERED: LANTUS SQ (04:37)
--- NOTE | 2020-01-22 04:50 | NUR ---
[facility] ([facility]). I spoke with Gwendolyn the Caregiver. She faxed me the POLTS that reads DNR. Dr. Merida updated. I reviewed with Gwendolyn the insulin administration listed on her MAR given to us that shows the Pt had a glucose of 42 at 1700 and she was administered novolog 2 units. It shows that she was rechecked (but no time of the recheck) and it was 94. She reports there are no parameters for the administration of the insulin and that Pt will usually eat and the insulin will come up. EMS was found Pt at 2131 w sugar of 34.
--- NOTE | 2020-01-22 05:26 | NUR ---
DNR band placed. Pt sleeping. Stable VS
[2020-01-22] MEDS ORDERED: LOPE2CAP PO (05:35)
--- NOTE | 2020-01-22 05:52 | NUR ---
ACCUCHECK 158. PT STARTED ON D5 NS MAINTENANCE FLUIDES AT 100 HR 65 MIN AGO. FLUIDS STOPPED AND PAGE OUT NOW TO HOSPITALIST.
--- NOTE | 2020-01-22 06:01 | NUR ---
spoke to Chika WHEELER regarding insulin administration discrepancies. Chika informed me that they per the charting, the patient had a glucose in the 40s and not long after recieved insulin. patient states that she gives the patient glucose gel and gets her glucose up in the 90s before she gives her normal 2 units of novalog. Pat added that they do not use a sliding scale. she was advised to implement one so as to not to continue administering the incorrect insulin administration.
--- NOTE | 2020-01-22 06:24 | NUR ---
Dr. Merida updated on elevated blood sugar. Order received for ns at 100 and to dc d5 infusion
[2020-01-22] MEDS ORDERED: loperamide 2mg capsule PO PRN (06:50)
[2020-01-22] MEDS: normal saline 1000ml 1,000 ML IV SCH ×2 (07:03→17:15)
--- NOTE | 2020-01-22 07:36 | NUR ---
pt sleeping at this time in no apparent distress, rn tried to call report, waiting on receiving rn to call back.
[2020-01-22] MEDS: polyethylene glycol 3350 17gm powd pack PO SCH (08:00)
[2020-01-22] MEDS: ESCITALOPRAM OXALATE 5 MG TABLET PO SCH (08:00)
[2020-01-22] MEDS: carbidopa/levodopa 50/200mg CR tablet PO SCH ×3 (08:00→15:00)
[2020-01-22] MEDS: cetirizine 10mg tablet PO SCH (08:00)
[2020-01-22] MEDS: pantoprazole 40mg Tablet.DR PO SCH (08:00)
[2020-01-22] MEDS: amantadine 100mg/10ml UD oral solution PO SCH ×2 (08:00→20:00)
--- NOTE | 2020-01-22 08:00 | NUR ---
Received report from RAYSHAWN Kumar. Awaiting patient arrival.
[2020-01-22 08:15] VITALS: BP 139/38
[2020-01-22] MEDS: heparin, porcine 5000 units/ml vial SQ SCH ×2 (10:05→15:34)
[2020-01-22 11:00] VITALS: BP 141/71
[2020-01-22] MEDS ORDERED: magnesium Cl slow-release 64mg tablet PO PRN (11:50)
[2020-01-22] MEDS ORDERED: potassium CL 10mEq/100ml bag 100 ML IV PRN (11:50)
[2020-01-22] MEDS ORDERED: potassium Cl 20 mEq SR tablet PO PRN ×2 (11:50)
[2020-01-22] MEDS ORDERED: magnesium 2GM in 50ml NS 50 ML IV PRN (11:50)
[2020-01-22] MEDS ORDERED: magnesium 4gm in 100ml NS 100 ML IV PRN (11:50)
[2020-01-22] MEDS: K and/or MAG REPLACEMENT MC SCH ×2 (12:00→20:00)
[2020-01-22] MEDS: dextrose 50%-water 50ml dispensing syringe IV PRN ×2 (12:30→21:08)
--- NOTE | 2020-01-22 16:32 | NUR ---
Low BMI trigger: Pt admit w/ low Glu from care facility increased to 400's now down to 109 w/ another low 62 this afternoon. Refusing all pureed/thin meals today. BMI 15.4 using 40.6kg bed scale this admit w/ all prior admits pt stated/no accurate documentation. Glu issues likely r/t diabetic mismanagement per MD; A1C 6.1. Pt takes metformin 500 BIDAC and 10 units Lantus AM per EMR. Pt hx developmental delay, Alzheimer's dementia, CVA, and Parkinson's per EMR. S/p video swallow study 07/2019 recommending pureed/thin diet per EMR; pt currently unable to wake enough to tolerate taking PO meds per RN. RD recommended HVAC R TECH BSS given pt hx and unable to tolerate PO. RN reports caregiver provides meds in applesauce at care facility and conservator unsure if wt loss hx. Pt is small framed likely maintains underweight status at baseline though presents w/ generalized severe weakness, and visible mild muscle/fat wasting to legs/arms during RN exam upon RD visit. At this time pt meets non-severe malnutrition criteria; MD notified. Will monitor for diet advancement as medically indicated and PO tolerance. Pt is not appropriate for malnutrition ed given hx. If PO remains poor this admit given current presentation pt will meet severe malnutrition criteria. Rec: 1. advance diet as medically indicated per HVAC R TECH/MD to regular; consider carb controlled restriction if PO at least 50% avg meals 2. monitor for ONS needs pending HVAC R TECH recs 3. routine bowel care 4. weekly wts Addendum: 01/22/20 at [address] Amended: Links added.
--- NOTE | 2020-01-22 18:00 | NUR ---
Student documentation: I have reviewed and agree with all interventions, assessments performed and documented by SN Christina. Student Medication Administration: For this medication-pass time frame, all medication were reviewed, dispensed, administered and documented per hospital policy by SN Christina.
--- NOTE | 2020-01-22 18:20 | NUR ---
pt sats 85% on room air put on 2l nc for this sats up to 92% with this and positioned to comfort. pt non verbal with white foamy oral secretions thick with dry saliva cracked lips. mouth care done with sponge swaps dampened with water and cleaned then lip balm applied to dry lips.
--- NOTE | 2020-01-22 18:21 | NUR ---
Problems reprioritized. Patient report given, questions answered & plan of care reviewed with RAYSHAWN Burgos.
--- NOTE | 2020-01-22 19:04 | NUR ---
Patient in room [facility]. I have received report from Ashley Rankin and had the opportunity to ask questions and assume patient care. Addendum: 01/22/20 at 1905 by Loretta Ruby RN Amended: Links added.
[2020-01-22 20:00] VITALS: BP 116/75
--- NOTE | 2020-01-22 20:00 | NUR ---
pt starting to look at staff remains non verbal eyes open. skin care done. positioned to comfort. pt had pulled o2 off sats decreased and 02 reapplied to pt.
[2020-01-22] MEDS: insulin glargine (Lantus) pen - multi-dose SQ SCH (21:00)
--- NOTE | 2020-01-22 21:00 | NUR ---
blood sugar down to 59 and 1/2 amp of D50 given with blood sugar 15 minutes went up to 151.
--- NOTE | 2020-01-22 22:00 | NUR ---
changed draw sheet & dryflow, and repositioned purwick with nurse's aid. noticed reddened area on coccyx. applied skin prep cleansing spray and barrier cream.
[2020-01-22 23:12] VITALS: BP 111/70
--- NOTE | 2020-01-22 23:25 | NUR ---
blood sugar now 130 and mouth care done positioned to comfort hands cold socks applied to them. left hand more contacted than right hand and wash cloth applied to the hand and warm blanket to comfort.
[2020-01-23] MEDS: heparin, porcine 5000 units/ml vial SQ SCH ×3 (00:21→16:41)
--- NOTE | 2020-01-23 01:00 | NUR ---
blood sugar 172. pt positioned to comfort. no s&s of distress at this time.
[2020-01-23] MEDS: normal saline 1000ml 1,000 ML IV SCH (04:07)
[2020-01-23 05:31] LABS: BASOPHILS % (AUTO) 0.3 % (0-1); EOSINOPHILS # (AUTO) 0.1 X10'3 (0-0.9); EOSINOPHILS % (AUTO) 0.9 % (0-6); HEMATOCRIT 35.3 % (35.0-45.0); HEMOGLOBIN 11.8 g/dl (12.0-16.0); LYMPHOCYTES # (AUTO) 1.6 X10'3 (1.1-4.8); LYMPHOCYTES % (AUTO) 24.4 % (21-51); MEAN CORPUSCULAR HEMOGLOBIN 31.5 PG (27.0-31.0); MEAN CORPUSCULAR HGB CONC 33.5 g/dL (33.0-36.5); MEAN CORPUSCULAR VOLUME 93.9 FL (78-98); MEAN PLATELET VOLUME 9.3 FL (7.4-10.4); MONOCYTES # (AUTO) 0.5 X10'3 (0-0.9); MONOCYTES % (AUTO) 6.9 % (2-12); NEUTROPHILS # (AUTO) 4.5 X10'3 (1.8-7.7); NEUTROPHILS % (AUTO) 67.5 % (42-75); PLATELET COUNT 179 X10'3 (140-440); RED BLOOD COUNT 3.75 X10'6 (4.20-5.60); RED CELL DISTRIBUTION WIDTH 13.3 % (11.5-14.5); WHITE BLOOD COUNT 6.7 X10'3 (4.5-11.0)
[2020-01-23 05:40] LABS: ALANINE AMINOTRANSFERASE 13 U/L (12-78); ALBUMIN/GLOBULIN RATIO 0.9 (1.1-1.5); ALKALINE PHOSPHATASE 65 IU/L (46-116); ANION GAP 5 (8-16); ASPARTATE AMINO TRANSFERASE 19 U/L (10-37); BILIRUBIN,TOTAL 0.5 MG/DL (0.1-1.0); BLOOD UREA NITROGEN 10 MG/DL (7-18); BUN/CREATININE RATIO 17.5 (6.6-38.0); CALCIUM 7.7 MG/DL (8.5-10.1); CHLORIDE 107 MMOL/L (99-107); CREATININE 0.57 MG/DL (0.40-0.90); GLUCOSE 87 MG/DL (70-104); POTASSIUM 3.6 MMOL/L (3.5-5.1); SODIUM 140 MMOL/L (135-145); TOTAL CARBON DIOXIDE 27.7 MMOL/L (24-32); TOTAL PROTEIN 6.2 G/DL (6.4-8.2); eGFR > 90 ML/MIN
--- NOTE | 2020-01-23 06:20 | NUR ---
Problems reprioritized. Patient report given, questions answered & plan of care reviewed with Ashley Rankin. Student documentation: I have reviewed and agree with all interventions, assessments performed and documented by Mahogany roman Rn student.Student Medication Administration: For this medication-pass time frame, all medication were reviewed, dispensed, administered and documented per hospital policy by Nilsa Roman Rn Student. Addendum: 01/23/20 at 0704 by Loretta Ruby RN Amended: Links added.
[2020-01-23 08:00] VITALS: BP 138/48
[2020-01-23] MEDS: carbidopa/levodopa 50/200mg CR tablet PO SCH ×3 (08:00→14:11)
[2020-01-23] MEDS: ESCITALOPRAM OXALATE 5 MG TABLET PO SCH (08:00)
[2020-01-23] MEDS: cetirizine 10mg tablet PO SCH (08:00)
[2020-01-23] MEDS: pantoprazole 40mg Tablet.DR PO SCH (08:00)
[2020-01-23] MEDS: K and/or MAG REPLACEMENT MC SCH ×2 (08:00→20:00)
[2020-01-23] MEDS: amantadine 100mg/10ml UD oral solution PO SCH ×2 (08:00→20:00)
--- NOTE | 2020-01-23 11:11 | NUR ---
PAGER ID: [phone] MESSAGE: Cesar Bartholomew 360B : can I put in NPO orders per ST recommendations? becky [id number]
[2020-01-23 12:32] VITALS: BP 145/62
[2020-01-23] MEDS: dextrose 5%-water 1,000 ML IV SCH (12:37)
[2020-01-23 15:00] VITALS: BP 170/76
--- NOTE | 2020-01-23 15:10 | NUR ---
PAGER ID: [phone] MESSAGE: Cesar Bartholomew 360B : patients BP 170/76..appears to be painful, would you like an IV medication? Also, glucose is now 176 after D5W. becky [id number]
--- NOTE | 2020-01-23 16:27 | NUR ---
called Dr Dorman regarding patient having pain. Per Dr Dorman ok to given patient one time IV dose 0.[address] Dorman aware patients blood sugars have gone from 9 this am to 172 @ [address] Dorman as long as blood sugars are below 200 that is fine. If patients blood sugars go above 200 then we will have to change her rate of D5 IV fluids. Passed information on to Laura brandon RN
[2020-01-23] MEDS ORDERED: morphine 2 MG/ML inj. syringe IV ONE (16:30)
[2020-01-23 17:00] VITALS: BP 101/74
--- NOTE | 2020-01-23 18:10 | NUR ---
Patient in room [facility]. I have received report from Iris Hall and had the opportunity to ask questions and assume patient care. Addendum: 01/23/20 at 2054 by Loretta Ruby RN Amended: Links added.
--- NOTE | 2020-01-23 18:19 | NUR ---
Problems reprioritized. Patient report given, questions answered & plan of care reviewed with RAYSHAWN JAIN.
--- NOTE | 2020-01-23 19:05 | NUR ---
Problems reprioritized. Patient report given, questions answered & plan of care reviewed with Micah Obrien rN. Addendum: 01/23/20 at 2055 by Loretta Ruby RN Amended: Links added.
--- NOTE | 2020-01-23 19:06 | NUR ---
Patient in room [facility]. I have received report from SUSY TABARES and had the opportunity to ask questions and assume patient care.
[2020-01-23 20:00] VITALS: BP 101/74
[2020-01-23] MEDS: insulin glargine (Lantus) pen - multi-dose SQ SCH (21:00)
[2020-01-24] VITALS: BP 143/69
[2020-01-24] MEDS: heparin, porcine 5000 units/ml vial SQ SCH ×3 (00:51→16:23)
[2020-01-24 05:05] LABS: HEMATOCRIT 38.1 % (35.0-45.0); HEMOGLOBIN 12.5 g/dl (12.0-16.0); MEAN CORPUSCULAR HGB CONC 32.7 g/dL (33.0-36.5); MEAN CORPUSCULAR VOLUME 94.7 FL (78-98); RED BLOOD COUNT 4.03 X10'6 (4.20-5.60); RED CELL DISTRIBUTION WIDTH 13.4 % (11.5-14.5)
[2020-01-24 05:06] LABS: BASOPHILS % (AUTO) 0.6 % (0-1); EOSINOPHILS % (AUTO) 0.3 % (0-6); LYMPHOCYTES % (AUTO) 32.9 % (21-51); MEAN PLATELET VOLUME 9.3 FL (7.4-10.4); MONOCYTES # (AUTO) 0.5 X10'3 (0-0.9); MONOCYTES % (AUTO) 8.3 % (2-12); NEUTROPHILS # (AUTO) 3.5 X10'3 (1.8-7.7); NEUTROPHILS % (AUTO) 57.9 % (42-75); PLATELET COUNT 182 X10'3 (140-440)
[2020-01-24 05:14] LABS: ALANINE AMINOTRANSFERASE 18 U/L (12-78); ALBUMIN 3.3 G/DL (3.4-5.0); ALBUMIN/GLOBULIN RATIO 0.9 (1.1-1.5); ANION GAP 7 (8-16); ASPARTATE AMINO TRANSFERASE 19 U/L (10-37); BILIRUBIN,TOTAL 0.6 MG/DL (0.1-1.0); BLOOD UREA NITROGEN 10 MG/DL (7-18); BUN/CREATININE RATIO 14.3 (6.6-38.0); CALCIUM 8.4 MG/DL (8.5-10.1); CHLORIDE 104 MMOL/L (99-107); GLUCOSE 186 MG/DL (70-104); POTASSIUM 3.8 MMOL/L (3.5-5.1); SODIUM 137 MMOL/L (135-145); TOTAL CARBON DIOXIDE 26.3 MMOL/L (24-32); TOTAL PROTEIN 6.8 G/DL (6.4-8.2); eGFR 81 ML/MIN
[2020-01-24 05:24] LABS: ALKALINE PHOSPHATASE 75 IU/L (46-116)
--- NOTE | 2020-01-24 06:30 | NUR ---
Problems reprioritized. Patient report given, questions answered & plan of care reviewed with LIVE TABARES.
[2020-01-24 07:00] VITALS: BP 170/61
[2020-01-24 08:00] VITALS: BP 142/59
[2020-01-24] MEDS: K and/or MAG REPLACEMENT MC SCH ×2 (08:00→19:18)
[2020-01-24] MEDS: polyethylene glycol 3350 17gm powd pack PO SCH (08:00)
[2020-01-24] MEDS: carbidopa/levodopa 50/200mg CR tablet PO SCH ×2 (08:00→11:00)
[2020-01-24] MEDS: ESCITALOPRAM OXALATE 5 MG TABLET PO SCH (08:00)
[2020-01-24] MEDS: amantadine 100mg/10ml UD oral solution PO SCH ×2 (08:00→19:18)
[2020-01-24] MEDS: cetirizine 10mg tablet PO SCH (08:00)
[2020-01-24] MEDS: pantoprazole 40mg Tablet.DR PO SCH (08:00)
--- NOTE | 2020-01-24 10:36 | NUR ---
PAGER ID: [phone] MESSAGE: Cesar Bartholomew 360B : patients blood sugars running 170-180s since D5W started can we do accuchecks less frequently? becky [id number]
[2020-01-24] MEDS: dextrose 5%-water 1,000 ML IV SCH ×2 (12:02→19:15)
--- NOTE | 2020-01-24 13:13 | NUR ---
Reassessment: Pt s/p BSS with ST recs NPO and to reassess d/t pt unsafe for PO intake d/t cognitive level. Noted that pt refused all meals for the day that she had a PO diet order. Pt not alert and oriented at this time although noted pt with hx Alzheimer's dementia. Pt nonverbal per MD notes. Pt receiving routine D5 at 40 mL/hr (163 kcal). No documented LBM and PO medications not being given at this time d/t NPO status. Will continue to follow closely and make recommendations as appropriate. Rec: 1. advance diet as medically indicated per ST/MD to regular; consider carb controlled restriction if PO at least 50% avg meals 2. monitor for ONS needs with PO diet advancement pending f/u BSS with ST 3. routine bowel care 4. scaled wt per rx Addendum: 01/24/20 at [address] Amended: Links added.
[2020-01-24] MEDS ORDERED: carbidopa/levodopa 50/200mg CR tablet PO SCH (14:27)
--- NOTE | 2020-01-24 15:14 | NUR ---
Page sent to Case Management per Dr Dorman request. Cesar Bartholomew 360B : Hospitalist requested that case management get ahold of conservator/sister Sabrina regarding possible PEG tube? patient failed swallow eval again today. thanks!
--- NOTE | 2020-01-24 18:21 | NUR ---
Problems reprioritized. Patient report given, questions answered & plan of care reviewed with RAYSHAWN Shirley.
--- NOTE | 2020-01-24 18:30 | NUR ---
Patient in room [facility]. I have received report from LIVE TABARES and had the opportunity to ask questions and assume patient care.
[2020-01-24 20:00] VITALS: BP 156/55
[2020-01-24] MEDS: insulin glargine (Lantus) pen - multi-dose SQ SCH (21:00)
[2020-01-25] VITALS: BP 175/55
[2020-01-25] MEDS: heparin, porcine 5000 units/ml vial SQ SCH ×2 (00:11→08:48)
--- NOTE | 2020-01-25 06:24 | NUR ---
Patient in room [facility]. I have received report from RAYSHAWN Garcia and had the opportunity to ask questions and assume patient care.
--- NOTE | 2020-01-25 06:30 | NUR ---
Problems reprioritized. Patient report given, questions answered & plan of care reviewed with MINAL TABARES.
[2020-01-25 06:36] LABS: BASOPHILS % (AUTO) 0.4 % (0-1); EOSINOPHILS % (AUTO) 0.1 % (0-6); HEMATOCRIT 37.9 % (35.0-45.0); HEMOGLOBIN 12.6 g/dl (12.0-16.0); LYMPHOCYTES # (AUTO) 1.4 X10'3 (1.1-4.8); LYMPHOCYTES % (AUTO) 24.3 % (21-51); MEAN CORPUSCULAR HEMOGLOBIN 31.2 PG (27.0-31.0); MEAN CORPUSCULAR HGB CONC 33.3 g/dL (33.0-36.5); MEAN CORPUSCULAR VOLUME 93.8 FL (78-98); MEAN PLATELET VOLUME 9.1 FL (7.4-10.4); MONOCYTES # (AUTO) 0.4 X10'3 (0-0.9); MONOCYTES % (AUTO) 7.2 % (2-12); PLATELET COUNT 182 X10'3 (140-440); RED BLOOD COUNT 4.05 X10'6 (4.20-5.60); RED CELL DISTRIBUTION WIDTH 13.2 % (11.5-14.5); WHITE BLOOD COUNT 5.9 X10'3 (4.5-11.0)
--- NOTE | 2020-01-25 06:48 | NUR ---
Patient in room [facility]. I have received report from Casper and had the opportunity to ask questions and assume patient care.
[2020-01-25 06:49] LABS: ALANINE AMINOTRANSFERASE 18 U/L (12-78); ALBUMIN 3.4 G/DL (3.4-5.0); ALBUMIN/GLOBULIN RATIO 0.9 (1.1-1.5); ALKALINE PHOSPHATASE 78 IU/L (46-116); ANION GAP 7 (8-16); ASPARTATE AMINO TRANSFERASE 18 U/L (10-37); BILIRUBIN,TOTAL 0.7 MG/DL (0.1-1.0); BLOOD UREA NITROGEN 11 MG/DL (7-18); BUN/CREATININE RATIO 13.3 (6.6-38.0); CALCIUM 8.6 MG/DL (8.5-10.1); CHLORIDE 100 MMOL/L (99-107); CREATININE 0.83 MG/DL (0.40-0.90); GLUCOSE 243 MG/DL (70-104); POTASSIUM 3.5 MMOL/L (3.5-5.1); SODIUM 134 MMOL/L (135-145); TOTAL CARBON DIOXIDE 26.8 MMOL/L (24-32); eGFR 67 ML/MIN
[2020-01-25 07:30] VITALS: BP 148/63
[2020-01-25] MEDS: amantadine 100mg/10ml UD oral solution PO SCH (08:00)
[2020-01-25] MEDS: ESCITALOPRAM OXALATE 5 MG TABLET PO SCH (08:00)
[2020-01-25] MEDS: K and/or MAG REPLACEMENT MC SCH (08:00)
[2020-01-25] MEDS: cetirizine 10mg tablet PO SCH (08:00)
[2020-01-25] MEDS: carbidopa/levodopa 50/200mg CR tablet PO SCH ×2 (08:00→11:00)
[2020-01-25] MEDS: pantoprazole 40mg Tablet.DR PO SCH (08:00)
--- NOTE | 2020-01-25 08:54 | NUR ---
Pt is NPO. All PO meds held. Pt failed swallow study per Speech Therapist.
[2020-01-25 11:42] VITALS: BP 101/74
--- NOTE | 2020-01-25 16:01 | NUR ---
Pt D/C'd to [facility] with [facility]osp[facility] care. IV removed, pt unable to sign discharge papers. instructions given to health care coach/distribution driver. Pt was escorted to front lobby on w/c accompanied by distribution driver. left the hospital via [facility].
== END 2020-01-25 13:20 | disposition hospice, inpatient (51) | DRG 638 ==
LOC: ER 22:01 → ED HOLD 01-22 04:06 → SUR 3N 01-22 08:09
PROVIDERS: ADMIT Family Medicine; ATTEND Internal Medicine
DX: E11.649 Type 2 diabetes mellitus with hypoglycemia without coma (principal); E87.2 Acidosis; E44.0 Moderate protein-calorie malnutrition; Z68.1 Body mass index [BMI] 19.9 or less, adult; G20 Parkinson's disease; N18.9 Chronic kidney disease, unspecified; E11.319 Type 2 diabetes mellitus with unspecified diabetic retinopathy without macular edema; E11.22 Type 2 diabetes mellitus with diabetic chronic kidney disease; E78.5 Hyperlipidemia, unspecified; G30.9 Alzheimer's disease, unspecified; G89.29 Other chronic pain; F32.9 Major depressive disorder, single episode, unspecified; F02.80 Dementia in other diseases classified elsewhere, unspecified severity, without behavioral disturbance, psychotic disturbance, mood disturbance, and anxiety; Z66 Do not resuscitate; Z79.4 Long term (current) use of insulin; Z86.73 Personal history of transient ischemic attack (TIA), and cerebral infarction without residual deficits; Z87.440 Personal history of urinary (tract) infections
CPT/HCPCS: 36415; 71045; 80053; 81001; 82948; 83036; 83605; 83735; 84145; 85025; 87040; 87081; 92508; 92616; 93005; 96374; 97110; 97161; 97530; 97535; 99285; G0378; J1644; J1815; J2270; J3475; J7030; J7070